=== PATIENT | female | born 2000 | race Caucasian/White ===

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

== ENCOUNTER → 2021-01-01 | Outpatient (CLI) | payer MEDICAID ==
[~2021-01-01] MED LIST changes: +DCS100C PO; +IBUP-844 PO; +OXC5T PO; +PREN-142 PO; +SERT-413 PO
--- NOTE | 2021-01-01 17:00 | Diagnostic Imaging Report ---
PROCEDURE: Pelvic complete, transabdominal sonogram. Limited pelvic Doppler. TECHNIQUE: Multiple real-time grayscale images were obtained of the pelvis in various projections transabdominally. Limited pelvic duplex images were obtained. HISTORY: Right lower quadrant pain, abnormal uterine bleeding. COMPARISON: None available. FINDINGS: Uterus: The uterus is retroverted and measures 7.9 x 3.6 x 5.0 cm. The myometrium is homogeneous without fibroids. Endometrium: The endometrium is normal in thickness and measures 0.6 cm. There is no fluid within the endometrial cavity. Adnexa: The right ovary has a normal physiologic appearance. The left ovary is nonvisualized. The right ovary measures 2.8 x 2.1 x 2.0 cm. There is Doppler flow seen within the right ovary. Other: There is no free fluid within the pelvis. IMPRESSION: 1. Unremarkable pelvic ultrasound. 2. Nonvisualized left ovary. Dictated by: Dictated on workstation # [id number]
== END ==
LOC: RAD 15:15
PROVIDERS: ATTEND Family Medicine
DX: N93.9 Abnormal uterine and vaginal bleeding, unspecified (principal); R10.31 Right lower quadrant pain
CPT/HCPCS: 76830; 76856

== ENCOUNTER 2022-03-22 11:19 | Emergency (ER) | payer MEDICAID ==
[~2022-03-22] VITALS: Ht 167 cm; Wt 43.0 kg
[~2022-03-22 11:19] MED LIST changes: -DCS100C PO; +DOCU-239 PO
[2022-03-22] MEDS ORDERED: IBUPROFEN 600 MG (MOTRIN) TAB PO ONE (12:15)
--- NOTE | 2022-03-22 12:22 | ED Fall/Injury ---
General Chief Complaint: Hip/Pelvic Problems Stated Complaint: FALL,TAILBONE BRUISED Nursing Triage Note: PT PRESENTS TO ED WITH COMPLAINTS OF SACRAL PAIN AFTER FALLING DOWN SOME CONCRETE STEPS AND LANDING ON HER TAILBONE APROX 1 HOUR AGO. Source: patient Exam Limitations: no limitations History of Present Illness Date Seen by Provider: Mar 22, 2022 Time Seen by Provider: 11:54 Initial Comments This is a 22-year-old female who presented to the ER with complaints of tailbone pain after she slid down her concrete steps and landed on her tailbone. States incident occurred approxi-1 hour prior to arrival. She has pain whenever she sits upright in her tailbone as well as with ambulation. If she is reclining she has no pain. Has not taken anything prior to arrival. She is on the Depo injection and has not had a menstrual cycle. Denies injury to head/neck, hips, or pelvis. Allergies and Home Medications Allergies Coded Allergies: No Known Drug Allergies (Unverified , 10/18/16) Patient Home Medication List Docusate Sodium (Dok) 100 Mg Capsule, 100 MG PO BID Prescribed by: ROBERT LOVE on 05/08/20 07 Ibuprofen (Ibu) 600 Mg Tablet, 600 MG PO Q6HR Prescribed by: ROBERT LOVE on 05/08/20 0700 Oxycodone Hcl (Oxyir Tablet) 5 Mg Tab, 5 MG PO Q4HR PRN for PAIN-SEVERE (8-10) Prescribed by: ROBERT LOVE on 05/08/20 0700 Vit No.124/Iron/FA ( Vitamin Tablet) 1 Each Tablet, 1 EACH PO, (Reported) Entered as Reported by: KENDALL CAMEJO on 01/29/20 0633 Sertraline HCl (Sertraline HCl) 50 Mg Tablet, 50 MG PO, (Reported) Entered as Reported by: KENDALL CAMEJO on 01/29/20 0634 Past Bfxmcys-Qqtmfa-Mgsspj Hx Patient Social History Tobacco Use?: No Substance use?: No Alcohol Use?: No Pt feels they are or have been: No Immunizations Up To Date Tetanus Booster (TDap): Less than 5yrs PED Vaccines UTD: Yes First/Initial COVID19 Vaccinat: YES Second COVID19 Vaccination Jordy: YES COVID19 Vaccine 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 Seasonal Allergies Seasonal Allergies: No Past Medical History Surgery/Hospitalization HX: PMH: ANXIETY, MOOD STABILIZER Surgeries: No Respiratory: No Cardiac: No Neurological: No Reproductive Disorders: No Genitourinary: No Gastrointestinal: No Chronic Constipation Musculoskeletal: No Endocrine: No HEENT: No Cancer: No Psychosocial: No Integumentary: No Recent Skin Changes Blood Disorders: No Adverse Reaction/Blood Tranf: No Family Medical History Diabetes mellitus mgf Other Conditions/Hx Physical Exam Vital Signs Vital Signs - First Documented 03/22/22 11:30 Temp 36.8 Pulse 76 Resp 16 B/P (MAP) 98/70 (79) Pulse Ox 100 Capillary Refill : Less Than 3 Seconds Height, Weight, BMI Height: 5'8.00" Weight: 102lbs. oz. [id number]; 15.00 BMI Method:Stated Progress/Results/Core Measures Results/Orders My Orders Orders - DAY VORA APRN Sacrum And Coccyx (03/22/22 11:41) Ibuprofen Tablet (Motrin Tablet) (03/22/22 12:15) Medications Given in ED Current Medications Medications Dose Ordered Sig/Zenaida Route Start Time Stop Time Status Last Admin Dose Admin Ibuprofen 600 mg ONCE ONCE PO 03/22/22 12:15 03/22/22 12:16 DC 03/22/22 12:24 600 MG Vital Signs/I&O 03/22/22 11:30 Temp 36.8 Pulse 76 Resp 16 B/P (MAP) 98/70 (79) Pulse Ox 100 Blood Pressure Mean: 79 Departure Impression Primary Impression: Fx sacrum/coccyx-closed Disposition: 01 HOME, SELF-CARE Condition: Improved Departure-Patient Inst. Decision time for Depature: 12:23 Referrals: [facility] (PCP) Primary Care Physician FLORIN WATSON APRN (Family) Primary Care Physician Patient Instructions: Coccyx Fracture (DC) Add. Discharge Instructions: Plan: 1. Rest. May take Tylenol or Ibuprofen as needed for pain per package. 2. You can buy a donut over the counter to sit on for comfort. 3. May use ice 20 minutes at a time followed by heat for 20 minutes. 4. Healing time is typically 6-8 weeks. Avoid strenuous activity during this time. 5. Return for any new, concerning, or worsening symptoms. All discharge instructions reviewed with patient and/or family. Voiced understanding. DAY VORA WOOL HAT HYDRAULICKER Mar 22, 2022 12:22
--- NOTE | 2022-03-22 12:27 | Diagnostic Imaging Report ---
INDICATION: Sacral pain after a fall. EXAMINATION: Sacrum and coccyx 03/22/2022. FINDINGS: 2 views of the sacrum and coccyx demonstrate anterior angulation of the mid and distal sacrum which could be congenital with a fracture not excluded. Evaluation on frontal images limited due to overlying bowel gas and stool. Sacroiliac joints unremarkable. IMPRESSION: 1. Anterior angulation of the sacrum age indeterminate. If there is point tenderness, this is likely an acute fracture. Dictated by: Dictated on workstation # [id number]
[2022-03-22 12:45] VITALS: BP 98/70
== END 2022-03-22 12:45 | disposition home or self-care (01) ==
LOC: EDUNIT# 11:19 → ER 11:22
DX: S32.10XA Unspecified fracture of sacrum, initial encounter for closed fracture (principal); S32.2XXA Fracture of coccyx, initial encounter for closed fracture; W10.9XXA Fall (on) (from) unspecified stairs and steps, initial encounter
CPT/HCPCS: 72220

== ENCOUNTER → 2023-07-02 | Outpatient (CLI) | payer MEDICAID | LOC: CARD 13:30 | PROVIDERS: ATTEND Internal Medicine Cardiovascular Disease | DX: R55 Syncope and collapse (principal); R42 Dizziness and giddiness | CPT/HCPCS: 93306 ==